=== PATIENT | male | born 1995 | race Caucasian/White ===

== ENCOUNTER 2019-08-31 22:26 | Emergency (ER) | payer OTHER ==
[2019-08-31 22:39] VITALS: BP 158/73; PULSE 87; TEMP 98.3; BMI 34.8
--- NOTE | 2019-08-31 23:16 | PDOC ---
History of Present Illness - General Chief Complaint: Chest Pain Stated Complaint: CHEST PAIN Time Seen by Provider: 08/31/19 23:16 History Source: Patient Exam Limitations: No Limitations - History of Present Illness Initial Comments: 08/31/19 23:40 24yM w PMHx obesity presenting w 3d intermittent L chest tightness and L arm tingling since 4p today. Vomited x2 yesterday, new onset red cheeks. Not associated w position/exertion/food. Did not take any pain meds. Fam hx of early DE. Denies fever, nasal congestion, sore throat, cough, SOB, ABD pain, urinary/bowel mvmt changes. Past History - Past Medical History Allergies/Adverse Reactions: Allergies Allergy/AdvReac Type Severity Reaction Status Date / Time No Known Drug Allergies Allergy Verified 02/08/16 14:16 Home Medications: Ambulatory Orders Hydrocodone/Acetaminophen [Vicodin 5-300 mg Tablet] 1 each PO PRN PRN #0 tablet MDD 0 02/12/16 Ibuprofen 800 mg PO PRN PRN #0 tablet 02/12/16 Anemia: No (LOW PLATELET COUNT) Asthma: No Cancer: No Cardiac Disorders: No CVA: No COPD: No CHF: No Dementia: No Diabetes: No GI Disorders: No Disorders: No HTN: No Hypercholesterolemia: No Liver Disease: No Seizures: No Thyroid Disease: No - Surgical History Abdominal Surgery: No Appendectomy: No Cardiac Surgery: No Cholecystectomy: No Lung Surgery: No Neurologic Surgery: No Orthopedic Surgery: Yes (RIGHT KNEE ARTHROSCOPY 02/14/14) - Psycho Social/Smoking Cessation Hx Smoking History: Never smoked Have you smoked in the past 12 months: No Hx Alcohol Use: No Drug/Substance Use Hx: No Substance Use Type: None Hx Substance Use Treatment: No Cardiac Specific PMH - Complaint Specific PMHX Pacemaker: No Review of Systems - Review of Systems Constitutional: No: Chills, Fever HEENTM: No: Eye Pain, Nose Pain, Nose Congestion, Throat Pain, Mouth Pain Respiratory: No: Cough, Shortness of Breath Cardiac (ROS): Yes: Chest Pain. No: Palpitations, Syncope ABD/GI: No: Abdominal Distended, Constipated, Diarrhea, Nausea, Vomiting : No: Burning, Dysuria, Discharge, Flank Pain Musculoskeletal: No: Back Pain, Joint Pain Integumentary: No: Bruising, Dryness, Erythema Neurological: No: Headache, Seizure, Tingling Psychiatric: No: Anxiety, Depression, Stressors Endocrine: No: Excessive Sweating, Flushing, Intolerance to Cold, Intolerance to Heat Hematologic/Lymphatic: No: Anemia, Blood Clots *Physical Exam - Vital Signs Last Vital Signs Temp Pulse Resp BP Pulse Ox 98.3 F 87 19 158/73 100 08/31/19 22:36 08/31/19 22:36 08/31/19 22:36 08/31/19 22:36 08/31/19 22:36 - Physical Exam General Appearance: Yes: Nourished, Appropriately Dressed. No: Apparent Distress HEENT: positive: EOMI, SHANNA, Normal Voice, Hearing Grossly Normal, Other (red cheeks). negative: Scleral Icterus (R), Scleral Icterus (L), Nasal Congestion Respiratory/Chest: positive: Chest Tender (L chest), Lungs Clear, Normal Breath Sounds. negative: Respiratory Distress, Crackles, Rales, Rhonchi, Stridor, Wheezing Cardiovascular: positive: Regular Rhythm, Regular Rate, S1, S2. negative: Edema , Murmur Gastrointestinal/Abdominal: positive: Normal Bowel Sounds, Flat, Soft. negative : Tender, Organomegaly Integumentary: positive: Normal Color Neurologic: positive: office professionals II-XII NML intact, Fully Oriented, Alert, Normal Response, Motor Strength 5/5, Responsive, Sensory Deficit (L arm tingling). negative: Facial Droop, Confused, Disoriented Heart Score/ECG Review - History History: Slightly suspicious - Electrocardiogram EKG: Normal - Age Age: </= 45 - Risk Factors Risk Factors Heart Score: No Hx Hypercholesterolemia, No Hx Hypertension, No Hx Diabetes, No Smoking History, Yes Positive family hx of cardiac disease, Yes Hx Obesity Based on the list above the patient has:: 1-2 risk factors - Troponin Troponin: </= normal limit - Score Heart Score - Total: 1 ED Treatment Course - LABORATORY CBC & Chemistry Diagram: 08/31/19 23:40 08/31/19 23:40 - ADDITIONAL ORDERS Additional order review: Laboratory Results 08/31/19 23:40 Sodium 140 Potassium 3.9 Chloride 108 H Carbon Dioxide 24 Anion Gap 8 BUN 12.2 Creatinine 0.8 Est GFR (CKD-EPI)AfAm 145.93 Est GFR (CKD-EPI)NonAf 125.91 Random Glucose 87 Calcium 9.0 Troponin I < 0.02 08/31/19 23:40 RBC 5.45 MCV 83.0 MCHC 33.9 RDW 13.9 Neutrophils % 67.4 Lymphocytes % 25.2 Monocytes % 6.7 Eosinophils % 0.4 Basophils % 0.3 - RADIOLOGY Radiology Studies Ordered: Category Date Time Status CHEST PA & LAT [RAD] Stat Radiology 09/01/19 00:00 Taken Medical Decision Making - Medical Decision Making 08/31/19 23:29 EKG NSR, HR 95, QTc 424, no ST changes CXR clear lung lee, normal heart size --- 24yM w PMHx obesity presenting w 3d intermittent L chest tightness and L arm tingling since 4p today. Costochondritis (reproducible chest pain w palpation). Low concern for ACS (neg tropx2, NSR EKG) vs CVA (no focal neuro deficits) Given ibuprofen DC home w PCP f/u Discharge - Discharge Information Problems reviewed: Yes Clinical Impression/Diagnosis: Costochondritis, acute Condition: Improved Disposition: HOME - Admission No - Follow up/Referral - Patient Discharge Instructions Patient Printed Discharge Instructions: DI for Costochondritis Additional Instructions: You were seen for chest and arm pain. Your labs did not show anything concerning. You were given pain medication Please follow up with your primary care doctor regarding your visit Continue taking 600mg ibuprofen every 8 hours if you have pain. Do not take continuously for more than a week. Come back to the ED if you have worsening chest pain despite medication, trouble breathing, persistent vomiting, or unable to move your left arm. - Post Discharge Activity
[2019-08-31] MEDS ORDERED: IBUPROFEN 600 MG TABLET (FP) PO ONE (23:25)
--- NOTE | 2019-08-31 23:49 | PDOC ---
Documentation entered by Angela Blackwood SCRIBE, acting as scribe for Jo Hackett MD. Jo Hackett MD: This documentation has been prepared by the Jaison long Nirvannie, SCRIBE, under my direction and personally reviewed by me in its entirety. I confirm that the documentation accurately reflects all work, treatment, procedures, and medical decision making performed by me. Attending Attestation - Resident Resident Name: Franco Manley - ED Attending Attestation I have performed the following: I have examined & evaluated the patient, The case was reviewed & discussed with the resident, I agree w/resident's findings & plan, Exceptions are as noted - HPI HPI: 09/01/19 00:03 The patient is a 24 year old male, with a significant past medical history of obesity and family history of OK at an early age, who presents to the emergency department with 3 days of intermittent left-sided chest tightness with associated 6 hours of new onset of left arm tingling. Patient notes associated 2 episodes of emesis yesterday. He denies any recent fevers, chills, headache or dizziness. He denies any recent diarrhea or constipation. He denies any recent dysuria, frequency, urgency or hematuria. Allergies: NKDA - Physicial Exam PE: GENERAL: Awake, alert, and fully oriented, in no acute distress HEAD: No signs of trauma EYES: PERRLA, EOMI, sclera anicteric, conjunctiva clear ENT: Auricles normal inspection, hearing grossly normal, nares patent, oropharynx clear without exudates. Moist mucosa NECK: Normal ROM, supple, no lymphadenopathy, JVD, or masses LUNGS: Breath sounds equal, clear to auscultation bilaterally. No wheezes, and no crackles. Pain is reproducible HEART: Regular rate and rhythm, normal S1 and S2, no murmurs, rubs or gallops ABDOMEN: Soft, nontender, normoactive bowel sounds. No guarding, no rebound. No masses EXTREMITIES: Normal range of motion, no edema. No clubbing or cyanosis. No cords, erythema, or tenderness NEUROLOGICAL: Cranial nerves II through XII grossly intact. Normal speech, normal gait. Motor and sensation intact SKIN: Warm, dry, normal turgor, no rashes or lesions noted. - Medical Decision Making Pt with family history (originally stated he had a family member with an OK at 36 years of age, but mom corrected him that it was 52), obesity, presenting with L-sided cp. Pain is reproducible on exam. No history nor any physical exam findings to indicate PE. Will obtain serial troponins x2. CXR no acute findings. If workup is normal, will DC home with outpatient f/u. Heart Score/ECG Review - History History: Slightly suspicious - Electrocardiogram EKG: Normal - Age Age: </= 45 - Risk Factors Risk Factors Heart Score: Yes Positive family hx of cardiac disease, Yes Hx Obesity Based on the list above the patient has:: 1-2 risk factors - Troponin Troponin: </= normal limit - Score Heart Score - Total: 1
[2019-08-31 23:53] LABS: BASO % 0.3 % (0-2.0); EOS % 0.4 % (0-4.5); HEMATOCRIT 45.2 % (35.4-49); HEMOGLOBIN 15.3 GM/dL (11.7-16.9); LYMPH % 25.2 % (8-40); MCH 28.2 pg (25.7-33.7); MCHC 33.9 g/dl (32.0-35.9); MONO % 6.7 % (3.8-10.2); NEUT % 67.4 % (42.8-82.8); RBC 5.45 M/mm3 (4.00-5.60); RDW 13.9 % (11.9-15.9); WHITE BLOOD COUNT 8.9 K/mm3 (4.0-10.0)
[2019-09-01 00:19] LABS: ANION GAP 8 MMOL/L (8-16); BLOOD UREA NITROGEN 12.2 mg/dL (7-18); CHLORIDE 108 mmol/L (98-107); CO2 24 mmol/L (21-32); CREATININE 0.8 mg/dL (0.55-1.3); GLUCOSE,RANDOM 87 mg/dL (74-106); POTASSIUM 3.9 mmol/L (3.5-5.1); SODIUM 140 mmol/L (136-145)
[2019-09-01] MEDS ORDERED: IBUPROFEN 600 MG TABLET (FP) PO ONE (00:55)
[2019-09-01 11:00] LABS: MEAN PLT VOLUME 9.5 fl (7.5-11.1); PLATELET COUNT 92 K/MM3 (134-434); PLATELET ESTIMATE DECREASED
--- NOTE | 2019-09-01 13:09 | EKG ---
Test Reason : Blood Pressure : / mmHG Vent. Rate : 095 BPM Atrial Rate : 095 BPM P-R Int : 160 ms QRS Dur : 092 ms QT Int : 338 ms P-R-T Axes : 037 053 030 degrees QTc Int : 424 ms NORMAL SINUS RHYTHM WITH SINUS ARRHYTHMIA NORMAL ECG NO PREVIOUS ECGS AVAILABLE Confirmed by BRANDI MOLINA MD ([id number]) on 09/01/2019 1:08:49 PM Referred By: Confirmed By:BRANDI MOLINA MD
== END 2019-09-01 03:12 | disposition home or self-care (01) ==
LOC: JER 22:26
DX: M94.0 Chondrocostal junction syndrome [Tietze] (principal)
CPT/HCPCS: 36415; 71046-TC-FY; 80048; 84484; 85025; 93005; 93010; 99282-25